=== PATIENT | male | born 1950 | race Hispanic/Latino ===

== ENCOUNTER 2022-01-13 07:49 | Inpatient (IN) | payer OTHER, MEDICAID ==
[2022-01-13] MEDS ORDERED: Lorazepam 2 MG/ML VIAL ONE (08:13)
[2022-01-13] MEDS ORDERED: levETIRAcetam 500 MG/5 ML VIAL ONE (08:17)
[2022-01-13] MEDS ORDERED: levETIRAcetam in NS 0 ML ONE (08:17)
[2022-01-13 08:21] LABS: #Basophils 0.1 10x3/uL (0.0-0.2); #Eosinphils 0.2 10x3/uL (0.0-0.5); #Monocytes 0.4 10x3/uL (0.0-1.1); #Neutrophils 4.1 10x3/uL (1.5-8.4); %Basophils 0.9 % (0.0-2.0); %Eosinophils 3.2 % (0.0-6.0); %Lymphocytes 14.2 % (18.0-47.0); %Monocytes 6.6 % (0.0-10.0); %Neutrophils 73.3 % (40.0-75.0); Hemoglobin 14.2 g/dL (13.5-17.5); Mean Corpuscular Hemoglobin 31.1 pg (27.0-33.0); Mean Corpuscular Volume 91.7 fl (81.2-95.1); Mean Platelet Volume 9.6 fl (7.4-10.4); Platelet Count 194 10x3/uL (150-450); RBC Distribution Width 12.3 % (11.5-14.5); Red Blood Cell (RBC) Count 4.56 10x6/uL (4.32-5.72); White Blood Cell (WBC) Count 5.6 10x3/uL (3.5-10.5)
[2022-01-13] MEDS ORDERED: levETIRAcetam in NS 1,500 MG in Premix Bag 1 BAG IVPB SCH (08:30)
[2022-01-13] MEDS ORDERED: Midazolam HCl 10 mg/2 ml Vial ONE (08:31)
[2022-01-13 08:33] LABS: Acetaminophen Less than 10.0 mcg/mL (10.0-30.0); Alcohol Less than 10 mg/dL (Less than 10); Salicylate Less than 8.0 mg/dL (15.0-30.0)
[2022-01-13 08:33] LABS: ALT (SGPT) 37 U/L (8-55); AST (SGOT) 23 U/L (5-34); Alkaline Phosphatase 73 U/L (40-110); Anion Gap 16 mmol/L (10-20); BUN (Urea Nitrogen) 22 mg/dL (8.4-25.7); Bilirubin, Total 0.6 mg/dL (0.2-1.2); Calc. Creatinine Clearance 0 mL/min (70-130); Calcium 8.9 mg/dL (7.8-10.44); Carbon Dioxide 24 mmol/L (23-31); Chloride 102 mmol/L (98-107); Estimated GFR 69; Globulin 3.3 g/dL (2.4-3.5); Glucose 177 mg/dL (83-110); Lipase 39 U/L (8-78); Potassium 4.1 mmol/L (3.5-5.1); Protein, Total 7.3 g/dL (5.8-8.1); Sodium 138 mmol/L (136-145)
[2022-01-13] MEDS ORDERED: Ondansetron PF 4 MG/2 ML Vial IVP PRN (09:48)
[2022-01-13] MEDS ORDERED: Acetaminophen 650 MG Suppository PR PRN (09:48)
[2022-01-13] MEDS ORDERED: Lorazepam 2 MG/ML VIAL SLOW IVP PRN (09:53)
[2022-01-13 13:09] VITALS: BMI 27.7
[2022-01-13 13:24] LABS: Amphetamine Not Detected (NotDetected); Barbiturates Screen Not Detected (NotDetected); Benzodiazepine Screen Detected (NotDetected); Cocaine Metabolite Screen Not Detected (NotDetected); Methadone Not Detected (NotDetected); Methamphetamine Not Detected (NotDetected); Opiate Screen Not Detected (NotDetected); Oxycodone Screen Not Detected (NotDetected); Phencyclidine (PCP) Not Detected (NotDetected); THC/Cannabinoid Screen Not Detected (NotDetected); Tricyclic Screen Not Detected (NotDetected)
[2022-01-13] MEDS ORDERED: levETIRAcetam in NS 1,000 MG in Premix Bag 1 BAG IVPB SCH (21:00)
[2022-01-13] MEDS: levETIRAcetam 500 MG TAB PO SCH (22:17)
[2022-01-14] MEDS ORDERED: traMADol HCl 50 MG TAB PO SCH (00:15)
[2022-01-14 04:11] LABS: #Basophils 0.1 10x3/uL (0.0-0.2); #Eosinphils 0.2 10x3/uL (0.0-0.5); #Monocytes 0.7 10x3/uL (0.0-1.1); #Neutrophils 7.4 10x3/uL (1.5-8.4); %Basophils 0.6 % (0.0-2.0); %Eosinophils 1.6 % (0.0-6.0); %Lymphocytes 10.8 % (18.0-47.0); %Monocytes 7.7 % (0.0-10.0); %Neutrophils 78.7 % (40.0-75.0); Hemoglobin 13.7 g/dL (13.5-17.5); Mean Corpuscular HGB CONC 34.6 g/dL (32.0-36.0); Mean Corpuscular Hemoglobin 31.1 pg (27.0-33.0); Mean Corpuscular Volume 89.8 fl (81.2-95.1); Mean Platelet Volume 9.5 fl (7.4-10.4); Platelet Count 175 10x3/uL (150-450); RBC Distribution Width 12.6 % (11.5-14.5); Red Blood Cell (RBC) Count 4.41 10x6/uL (4.32-5.72); White Blood Cell (WBC) Count 9.5 10x3/uL (3.5-10.5)
[2022-01-14 04:27] LABS: Anion Gap 13 mmol/L (10-20); BUN (Urea Nitrogen) 17 mg/dL (8.4-25.7); Calc. Creatinine Clearance 85 mL/min (70-130); Carbon Dioxide 27 mmol/L (23-31); Chloride 100 mmol/L (98-107); Estimated GFR 91; Glucose 147 mg/dL (83-110); Potassium 3.5 mmol/L (3.5-5.1); Sodium 136 mmol/L (136-145)
[2022-01-14] MEDS: cloNIDine 0.1 MG TAB PO SCH ×3 (09:44→22:17)
[2022-01-14] MEDS: Carvedilol 25 MG TAB PO SCH ×2 (09:44→22:17)
[2022-01-14] MEDS: Montelukast Sodium 10 mg Tablet PO SCH (09:44)
[2022-01-14] MEDS: levETIRAcetam 500 MG TAB PO SCH ×2 (09:44→22:17)
[2022-01-14] MEDS ORDERED: Simvastatin 10 MG TAB PO SCH (21:00)
[2022-01-15 04:09] LABS: #Eosinphils 0.1 10x3/uL (0.0-0.5); #Monocytes 0.8 10x3/uL (0.0-1.1); #Neutrophils 6.3 10x3/uL (1.5-8.4); %Basophils 0.5 % (0.0-2.0); %Eosinophils 1.7 % (0.0-6.0); %Lymphocytes 11.9 % (18.0-47.0); %Monocytes 9.3 % (0.0-10.0); %Neutrophils 75.9 % (40.0-75.0); Hemoglobin 12.9 g/dL (13.5-17.5); Mean Corpuscular HGB CONC 33.6 g/dL (32.0-36.0); Mean Corpuscular Hemoglobin 30.6 pg (27.0-33.0); Mean Corpuscular Volume 91.2 fl (81.2-95.1); Mean Platelet Volume 9.4 fl (7.4-10.4); Platelet Count 149 10x3/uL (150-450); RBC Distribution Width 12.6 % (11.5-14.5); Red Blood Cell (RBC) Count 4.21 10x6/uL (4.32-5.72); White Blood Cell (WBC) Count 8.3 10x3/uL (3.5-10.5)
[2022-01-15 04:18] LABS: Anion Gap 13 mmol/L (10-20); BUN (Urea Nitrogen) 24 mg/dL (8.4-25.7); Calc. Creatinine Clearance 85 mL/min (70-130); Calcium 8.6 mg/dL (7.8-10.44); Carbon Dioxide 27 mmol/L (23-31); Chloride 101 mmol/L (98-107); Estimated GFR 91; Glucose 124 mg/dL (83-110); Potassium 3.9 mmol/L (3.5-5.1); Sodium 137 mmol/L (136-145)
[2022-01-15] MEDS: levETIRAcetam 500 MG TAB PO SCH ×2 (09:09→20:15)
[2022-01-15] MEDS: Carvedilol 25 MG TAB PO SCH (09:09)
[2022-01-15] MEDS: cloNIDine 0.1 MG TAB PO SCH ×2 (09:09→15:52)
[2022-01-15] MEDS: Montelukast Sodium 10 mg Tablet PO SCH (09:10)
[2022-01-15] MEDS ORDERED: Acetaminophen 500 MG TAB PO PRN (09:14)
[2022-01-15] MEDS ORDERED: HYDROcodone/Acetaminophen 10/325 mg Tablet PO PRN (09:15)
[2022-01-15] MEDS ORDERED: Ibuprofen 600 MG TAB PO PRN (09:15)
[2022-01-15 15:42] VITALS: BP 110/58; TEMP 97.4
== END 2022-01-15 20:32 | disposition home or self-care (01) | DRG 100 ==
LOC: CSHERS 07:49 → INTOOBSV 11:10 → CSHTELE 11:10 → OBSVTOIN 01-15 08:28
PROVIDERS: ADMIT Internal Medicine; ATTEND Internal Medicine
DX: R56.9 Unspecified convulsions (principal); J96.01 Acute respiratory failure with hypoxia; S22.42XA Multiple fractures of ribs, left side, initial encounter for closed fracture; J98.11 Atelectasis; I10 Essential (primary) hypertension; W19.XXXA Unspecified fall, initial encounter; Z20.822 Contact with and (suspected) exposure to COVID-19; I25.10 Atherosclerotic heart disease of native coronary artery without angina pectoris; E78.5 Hyperlipidemia, unspecified; K21.9 Gastro-esophageal reflux disease without esophagitis; Z79.51 Long term (current) use of inhaled steroids; Z79.899 Other long term (current) drug therapy; Z88.0 Allergy status to penicillin; Z88.8 Allergy status to other drugs, medicaments and biological substances
CPT/HCPCS: 36415; 36416; 70450; 70553; 71045; 80048; 80053; 80306; 80307; 82140; 83690; 83880; 84443; 85025; 93005; 94760; 96374; 96375; G0378; J1953; J2060; J2250; U0003; U0005

== ENCOUNTER 2024-06-09 11:55 | Emergency (ER) | payer OTHER ==
[~2024-06-09 11:55] MED LIST: Iopamidol 370 76% 100 ML VIAL ONE
[2024-06-09] MEDS ORDERED: diphenhydrAMINE 50 MG/ML VIAL ONE (13:34)
[2024-06-09] MEDS ORDERED: methylPREDNISolone Sod Succ 40 MG VIAL ONE (13:34)
[2024-06-09] MEDS ORDERED: Famotidine/PF 20 mg/2ml Vial ONE (13:35)
[2024-06-09 13:38] LABS: #Basophils 0.06 10x3/uL (0.0-0.2); #Eosinophils 0.39 10x3/uL (0.0-0.5); #Monocytes 0.73 10x3/uL (0.0-1.1); #Neutrophils 4.86 10x3/uL (1.5-8.4); %Basophils 0.8 % (0.0-2.0); %Eosinophils 5.5 % (0.0-6.0); %Monocytes 10.2 % (0.0-10.0); %Neutrophils 68.2 % (40.0-75.0); Hematocrit 46.4 % (38.8-50.0); Hemoglobin 15.5 g/dL (13.5-17.5); Mean Corpuscular HGB CONC 33.4 g/dL (32.0-36.0); Mean Corpuscular Hemoglobin 30.9 pg (27.0-33.0); Mean Corpuscular Volume 92.4 fL (81.2-95.1); Mean Platelet Volume 9.3 fL (7.4-10.4); Platelet Count 197 10x3/uL (150-450); RBC Distribution Width 11.9 % (11.5-14.5); Red Blood Cell (RBC) Count 5.02 10x6/uL (4.32-5.72); White Blood Cell (WBC) Count 7.1 10x3/uL (3.5-10.5)
[2024-06-09 13:56] LABS: ALT (SGPT) 66 U/L (8-55); AST (SGOT) 33 U/L (5-34); Alkaline Phosphatase 96 U/L (40-110); Anion Gap 14 mmol/L (10-20); BUN (Urea Nitrogen) 24 mg/dL (8.4-25.7); Calc. Creatinine Clearance 0 mL/min (70-130); Calcium 9.8 mg/dL (7.8-10.44); Carbon Dioxide 29 mmol/L (23-31); Chloride 96 mmol/L (98-107); Estimated GFR 77; Globulin 4.1 g/dL (2.4-3.5); Glucose 121 mg/dL (83-110); Potassium 3.4 mmol/L (3.5-5.1); Protein, Total 8.1 g/dL (5.8-8.1); Sodium 136 mmol/L (136-145)
[2024-06-09 16:51] LABS: Troponin I Less than 0.010 ng/mL (< 0.028)
== END 2024-06-09 16:15 | disposition home or self-care (01) ==
LOC: CSHERS 11:55
DX: I26.99 Other pulmonary embolism without acute cor pulmonale (principal); I31.39 Other pericardial effusion (noninflammatory); M79.89 Other specified soft tissue disorders; R54 Age-related physical debility; I10 Essential (primary) hypertension; Z75.8 Other problems related to medical facilities and other health care
CPT/HCPCS: 71275; 80053; 84484; 85025; 93005; 93971; 96374; 96375; 99284; J1200; J2919; J3490; Q9967; 36415